=== PATIENT | female | born 2000 ===

== ENCOUNTER 2022-08-21 08:55 | Day surgery (SDC) | payer OTHER | END 2022-08-21 16:10 | disposition home or self-care (01) | LOC: CIR.AMB 08:55 | PROVIDERS: ATTEND Orthopaedic Surgery | DX: G56.22 Lesion of ulnar nerve, left upper limb (principal); Z88.0 Allergy status to penicillin; Z20.822 Contact with and (suspected) exposure to COVID-19 ==